=== PATIENT | male | born 1980 | race Caucasian/White ===

== ENCOUNTER 2017-04-20 09:26 | Emergency (ER) | payer MEDICAID, OTHER ==
[2017-04-20 09:39] VITALS: PULSE 51; TEMP 98.3; O2SAT 100; BMI 23.6
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
[2017-04-20 10:42] VITALS: RESP 16
== END 2017-04-20 10:40 | disposition home or self-care (01) ==
LOC: ED 09:26
DX: L25.9 Unspecified contact dermatitis, unspecified cause (principal); F17.210 Nicotine dependence, cigarettes, uncomplicated
CPT/HCPCS: 99283; Q0177

== ENCOUNTER 2017-05-15 13:00 | Emergency (ER) | payer MEDICAID ==
[2017-05-15 13:00] VITALS: BMI 23.0
[2017-05-15 13:12] VITALS: TEMP 97.8; O2SAT 100
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
[2017-05-15 14:21] VITALS: BP 120/82; PULSE 64; RESP 17
== END 2017-05-15 14:39 | disposition home or self-care (01) ==
LOC: ED 13:00
DX: H10.13 Acute atopic conjunctivitis, bilateral (principal); F17.210 Nicotine dependence, cigarettes, uncomplicated

== ENCOUNTER 2017-05-24 09:53 | Emergency (ER) | payer MEDICAID ==
[2017-05-24 10:08] VITALS: RESP 18; TEMP 98.1; O2SAT 100; BMI 23.6
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
[2017-05-24 11:34] VITALS: BP 112/71; PULSE 59
== END 2017-05-24 11:44 | disposition home or self-care (01) ==
LOC: ED 09:53
DX: L25.9 Unspecified contact dermatitis, unspecified cause (principal)

== ENCOUNTER 2017-05-26 11:37 | Emergency (ER) | payer MEDICAID ==
[2017-05-26 11:38] VITALS: BMI 23.6
[2017-05-26 11:49] VITALS: BP 122/57; PULSE 50; RESP 16; TEMP 98; O2SAT 99
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
== END 2017-05-26 12:15 | disposition home or self-care (01) ==
LOC: ED 11:37
DX: H10.9 Unspecified conjunctivitis (principal); F17.210 Nicotine dependence, cigarettes, uncomplicated

== ENCOUNTER 2017-06-08 09:50 | Emergency (ER) | payer SELFPAY ==
[2017-06-08 09:51] VITALS: BMI 23.6
[2017-06-08 10:10] VITALS: BP 142/88; PULSE 98; RESP 16; TEMP 98.8; O2SAT 99
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
== END 2017-06-08 10:45 | disposition home or self-care (01) ==
LOC: ED 09:50
DX: H10.9 Unspecified conjunctivitis (principal); H11.152 Pinguecula, left eye

== ENCOUNTER 2018-06-01 12:42 | Emergency (ER) | payer MEDICAID, OTHER ==
[2018-06-01 12:53] VITALS: BMI 26.6
[2018-06-01 12:57] VITALS: BP 122/57; PULSE 56; RESP 18; TEMP 98.8; O2SAT 98
--- NOTE | 2018-06-01 13:41 | RAD ---
PROCEDURE: Left Hand Radiographs. HISTORY: left 2nd finger injury, inabilty to extend DIP COMPARISON: None. FINDINGS: BONES: Normal. No fracture. JOINTS: Normal. No osteoarthritic changes. SOFT TISSUES: Normal. OTHER FINDINGS: None. IMPRESSION: Normal left hand radiographs.
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
== END 2018-06-01 15:00 | disposition home or self-care (01) ==
LOC: ED 12:42
DX: S56.412A Strain of extensor muscle, fascia and tendon of left index finger at forearm level, initial encounter (principal); W23.0XXA Caught, crushed, jammed, or pinched between moving objects, initial encounter; F17.210 Nicotine dependence, cigarettes, uncomplicated